=== PATIENT | female | born 1965 | race African-American/Black ===

== ENCOUNTER 2020-02-12 09:31 | Emergency (ER) | payer OTHER, SELFPAY ==
[2020-02-12 09:42] VITALS: BP 161/97; PULSE 97; RESP 16; TEMP 36.4; O2SAT 100
--- NOTE | 2020-02-12 09:53 | ED.GENADULT ---
HPI - General Adult General Chief complaint: Dental/Oral Stated complaint: toothache Time Seen by Provider: 02/12/20 09:53 Source: patient Mode of arrival: ambulatory Limitations: no limitations History of Present Illness HPI narrative: 54-year-old female patient presents to the [facility] with complaints of left lower tooth pain for the past 10 days. Patient states she just had a root canal done a couple months ago but not on that tooth. Patient states she has been using Orajel as well as Tylenol for the pain. Denies any fevers, body aches or chills. Related Data Allergies Allergy/AdvReac Type Severity Reaction Status Date / Time acetaminophen [From Vicodin] AdvReac Headache Verified 02/12/20 09:45 aspirin AdvReac Headache Verified 02/12/20 09:45 hydrocodone [From Vicodin] AdvReac Headache Verified 02/12/20 09:45 Review of Systems Review of Systems: Narrative: CONSTITUTIONAL: Denies fever, chills, or sweats. EYES: Denies visual changes, redness, or discharge. ENT: Denies rhinorrhea, congestion, sore throat, or otalgia. Positive left lower dental pain x10 days CARDIOVASCULAR: Denies chest pain, palpitations, or edema. RESPIRATORY: Denies cough or dyspnea. GASTROINTESTINAL: Denies abdominal pain, nausea, vomiting, or diarrhea. GENITOURINARY: Denies dysuria or hematuria. SKIN: Denies rash or itching. MUSCULOSKELETAL: Denies back pain, joint pain, or myalgia. NEUROLOGIC: Denies headache, numbness, or weakness. PSYCHIATRIC: Denies anxiety or depression. PMFSH Comments At the time of my signature I agree with nursing past medical history, surgical, social, and family history. There is no relevant family history pertinent to the presenting complaint. Exam Narrative: Exam Narrative: GENERAL: Well-appearing, well-nourished, and in no acute distress. HEAD: Normocephalic, atraumatic. EYES: PERRLA and EOMI. ENT: Nares clear, no rhinorrhea or epistaxis. Mucous membranes moist. Patient has tenderness to the bottom left molar with some surrounding erythema and swelling of the gum. There is no obvious dental abscess no obvious dental abscess palpated to the cheek or the gum area. No obvious discharge at this time. NECK: Supple. No lymphadenopathy CHEST: Clear to auscultation. No respiratory distress. HEART: Regular rate and rhythm. No murmur heard. Normal peripheral pulses. ABDOMEN: Soft, nontender, nondistended, normal active bowel sounds. EXTREMITIES: Normal range of motion. No edema. SKIN: Warm, dry, no rash. NEURO: No focal deficits. Alert and oriented x3. Course Vital Signs Vital signs: Vital Signs Temperature 36.4 C 02/12/20 09:42 Pulse Rate 97 02/12/20 09:42 Respiratory Rate 16 02/12/20 09:42 Blood Pressure 161/97 H 02/12/20 09:42 Pulse Oximetry 100 02/12/20 09:42 Temperature 36.4 C 02/12/20 09:42 Pulse Rate 97 02/12/20 09:42 Respiratory Rate 16 02/12/20 09:42 Blood Pressure 161/97 H 02/12/20 09:42 Pulse Oximetry 100 02/12/20 09:42 Vital signs reviewed The patient has been informed that they may have pre-hypertension or Hypertension based on a BP reading in the department. I recommend that the patient call the primary care provider listed on their discharge instructions or a physician of their choice this week to arrange follow up for further evaluation of possible pre-hypertension or Hypertension Medical Decision Making Differential Diagnosis Differential Diagnosis: Differential diagnosis: Dental caries, periodontal disease, avulsed tooth, tooth infections, mandibular infection, Lucas's angiana, upper tooth infection, dry socket, gingivitis, acute necrotizing ulcerative gingivitis, sialolithiasis. Discussed with patient we will go ahead and put her on antibiotics and I would encourage her to call her dentist tomorrow for follow-up appointment. Discussed with her she can continue taking the Tylenol and Orajel as needed for the pain. Patient verbalized understanding denies any oth
== END 2020-02-12 10:08 | disposition home or self-care (01) ==
PROVIDERS: Emergency Provider Nurse Practitioner Family
DX: K08.89 Other specified disorders of teeth and supporting structures (principal)
CPT/HCPCS: 99213; G0463

== ENCOUNTER 2021-10-30 17:36 | Emergency (ER) | payer MEDICAID, SELFPAY ==
--- NOTE | ~2021-10-30 | XR_ITS ---
EXAM: XR ankle RT min 3V DATE: 10/30/2021 17:57 HISTORY: INJURY TO ANKLE 3 DAYS AGO, LATERAL PAIN . COMPARISON: None available. FINDINGS: Normal mineralization. Mild widening of the medial gutter. Enthesopathy at the medial mall eolus. Oblique distal right fibular fracture with mild lateral displacement at the level of the joint line (Jennings A type fracture). Cortical irregularity along the posterior malleolus, presumably repres enting an old healed fracture, noting the lateral view is limited by obliquity. No lytic or blastic l esion. Joint spaces are maintained. No erosion or periosteal change. Small ankle joint effusion. Soft tissue swelling about the ankle. IMPRESSION: Mildly displaced oblique fracture of the distal right fibula (Jennings A type fracture). Pre sumed old healed posterior malleolus fracture, poorly visualized. An acute posterior malleolar fractu re remains possible, correlate with history of prior injury. Reviewed, dictated and finalized at location K. IMPRESSION: Mildly displaced oblique fracture of the distal right fibula (Jennings A type fracture). Presumed old healed posterior malleolus fracture, poorly vis ualized. An acute posterior malleolar fracture remains possible, correlate with history of prior injury.
--- NOTE | 2021-10-30 17:37 | ED.LOWEXIN ---
HPI - Extremity Injury (Lower) General Chief Complaint: Extremity Injury, Lower Stated Complaint: R ANKLE INJURY Time Seen by Provider: 10/30/21 17:37 Source: patient Mode of arrival: ambulatory Limitations: no limitations History of Present Illness HPI Narrative: Ms. Nichols is a 56-year-old female patient presenting to the clinic today with complaints of a right ankle injury since Thursday. She reports she was stepping over a gas hose when filling her car and she fell down. She reports pain to the lateral right ankle. She is wearing an old walking boot and using a walker in the clinic today. Related Data Allergies Allergy/AdvReac Type Severity Reaction Status Date / Time acetaminophen [From Vicodin] AdvReac Headache Verified 02/12/20 09:45 aspirin AdvReac Headache Verified 02/12/20 09:45 hydrocodone [From Vicodin] AdvReac Headache Verified 02/12/20 09:45 Review of Systems Review of Systems: Pertinent positives per HPI. Patient denies any fever, chills, rash, headache, visual changes, dizziness, cough, runny nose, sore throat, shortness of breath, chest pain, palpitations, nausea, vomiting, diarrhea, constipation, abdominal pain, or any urinary issues. PMFSH Comments At the time of my signature, I reviewed and agree with the nursing past medical, surgical, social, and family history. There is no relevant family history pertinent to the patient complaint. Exam Narrative: General: Well-developed, obese, in no apparent distress Head: Normocephalic, atraumatic. Cardio: Regular rate and rhythm, s1 and s2 normal, no murmur appreciated. Resp: Clear to auscultation bilaterally, no rhonchi, rales, wheezing or rubs. Musculoskeletal: No deformity, no bruising noted, mild swelling to the lateral ankle, mildly tender to palpation over the distal lateral malleolus, limited range of motion due to pain, muscle strength strong and equal, peripheral pulse strong, no cyanosis, using wheeled walker Course Course Emergency Course: Portions of this record may have been created with voice recognition software. Level of Care: Express Care Visit Vital Signs Vital signs: Vital signs reviewed MDM - Extremity Injury (Lower) MDM Narrative Medical decision making narrative: At the time of visit patient is resting comfortably on the exam table. X-ray shows a fracture over the right lateral malleolus. Patient was placed in short leg OCL splint in the clinic. She was instructed to use her walker and follow-up with Dr. Mortensen for further evaluation/treatment Imaging Data Radiologist's impression: Close Ankle X-Ray (Signed) Lopez Grimes - 10/30/21 Launch?[facility] [place] [id number] [facility] [place] [address] XRay Report Signed Patient: Nan Griffiths : 1965 MR#: [id number] Age/Sex: 56 / F Acct:[id number] Loc: [facility]? ? ADM Date: 10/30/21Attending Dr: Ordering Physician: Tirso Daley APRN Date of Service: 10/30/21 Procedure(s): XR ankle RT min 3V Accession Number(s): [id number] cc: Tirso Daley APRN; MOLD TECHNICIAN PHYSICIAN~ EXAM:? XR ankle RT min 3V DATE: 10/30/2021 17:57 HISTORY: INJURY TO ANKLE 3 DAYS AGO, LATERAL PAIN . COMPARISON:? None available. FINDINGS:? Normal mineralization. Mild widening of the medial gutter. Enthesopathy at the medial malleolus. Oblique distal right fibular fracture with mild lateral displacement at the level of the joint line (Jennings A type fracture). Cortical irregularity along the posterior malleolus, presumably representing an old healed fracture, noting the lateral view is limited by obliquity. No lytic or blastic lesion. Joint spaces are maintained. No erosion or periosteal change. Small ankle joint effusion. Soft tissue swelling about the ankle. IMPRESSION: Mildly displaced oblique fracture of the distal right fibula (Jennings A type fracture). 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
[2021-10-30 17:45] VITALS: BP 156/88; PULSE 104; RESP 16; TEMP 36.6; O2SAT 97
--- NOTE | 2021-10-30 18:27 | PC.NURSE ---
SHORT LEG OCL APPLIED PER TECH. +PMS POST APPLICATION.
== END 2021-10-30 18:20 | disposition home or self-care (01) ==
PROVIDERS: Emergency Provider Nurse Practitioner Family
DX: S82.831A Other fracture of upper and lower end of right fibula, initial encounter for closed fracture (principal); W19.XXXA Unspecified fall, initial encounter
CPT/HCPCS: 29515; 73610; 99214; G0463